=== PATIENT | female | born 1955 ===

== ENCOUNTER → 2019-02-09 | Outpatient (REF) | LOC: M LAB LCGH 12:34 | PROVIDERS: ATTEND Nurse Practitioner Family | DX: D48.9 Neoplasm of uncertain behavior, unspecified (principal) ==

== ENCOUNTER → 2019-03-29 | Outpatient (REF) | LOC: M LAB LCGH 15:14 | PROVIDERS: ATTEND Surgery | DX: Z00.00 Encounter for general adult medical examination without abnormal findings (principal) ==

== ENCOUNTER → 2019-04-12 | Outpatient (REF) | LOC: M LAB LCGH 15:00 | PROVIDERS: ATTEND Nurse Practitioner Family | DX: D48.9 Neoplasm of uncertain behavior, unspecified (principal) ==